=== PATIENT | female | born 1980 | race Caucasian/White ===

== ENCOUNTER 2017-10-03 13:38 | Emergency (ER) | payer OTHER ==
[~2017-10-03] VITALS: Ht 167.6 cm; Wt 55.3 kg
[~2017-10-03 13:38] MED LIST: ACETAMINOPHEN-1 EAC1 PO; ALBUTEROL INHAL17 GM IH; AUGMENTIN 875875 MG PO; BUTALB-APAP-CA1 EACH PO; CIPROFLOXIN HC2.5 M1 OPHTHALMIC; CLEOCIN HCL150 MG PO; ESTRADIOL 1 MG T1 M1 PO; HYDROCODONE-AP1 EAC6 PO; IBUPROFEN 800800 M1 PO; KEFLEX500 M1 PO; KEFLEX500 MG PO; NAPROSYN500 MG PO; NOHOMEMEDICATIONS; NORCO 5-325 TA1 EACH PO; ROBAXIN500 MG PO; TESSALON PERLE100 MG PO; TESSALON200 MG PO; TIZANIDINE HCL 22 M1 PO; TRAMADOL 50 MG50 MG PO; ULTRAM 50MG TAB50 MG PO; XANAX 0.5 MG0.5 M1 PO
[2017-10-03] MEDS ORDERED: OSELB75 PO (14:15)
[2017-10-03] MEDS ORDERED: IBUPROFEN 600600 M1 PO (14:15)
[2017-10-03] MEDS ORDERED: PROMETHAZINE V473 ML PO (14:15)
[2017-10-03] MEDS ORDERED: TESSALON PERLE100 MG PO (14:15)
[2017-10-03] MEDS ORDERED: KEFLEX500 M1 PO (14:16)
[2017-10-03 14:18] LABS: INFLUENZA A ANTIGEN None Detected (None Detect); INFLUENZA B ANTIGEN None Detected (None Detect)
[2017-10-03 14:25] VITALS: BP 130/79
== END 2017-10-03 14:30 | disposition home or self-care (01) ==
LOC: M.ERS 13:38
PROVIDERS: Physician Assistant
DX: J11.1 Influenza due to unidentified influenza virus with other respiratory manifestations (principal); H66.93 Otitis media, unspecified, bilateral; E80.4 Gilbert syndrome; F17.210 Nicotine dependence, cigarettes, uncomplicated; Z90.89 Acquired absence of other organs; Z90.49 Acquired absence of other specified parts of digestive tract; Z90.710 Acquired absence of both cervix and uterus; Z85.828 Personal history of other malignant neoplasm of skin; Z88.8 Allergy status to other drugs, medicaments and biological substances; Z88.5 Allergy status to narcotic agent; Z88.2 Allergy status to sulfonamides

== ENCOUNTER 2017-10-15 21:09 | Emergency (ER) | payer OTHER ==
[~2017-10-15] VITALS: Ht 167.6 cm; Wt 54.4 kg
[~2017-10-15 21:09] MED LIST changes: +IBUPROFEN 600600 M1 PO; +OSELB75 PO; +PROMETHAZINE V473 ML PO
[2017-10-15] MEDS ORDERED: NAPROSYN500 MG PO (22:00)
[2017-10-15] MEDS ORDERED: HYDROCODONE-AP1 EAC6 PO (22:00)
[2017-10-15 22:24] VITALS: BP 114/51
== END 2017-10-15 22:34 | disposition home or self-care (01) ==
LOC: M.ERS 21:09
DX: S93.601A Unspecified sprain of right foot, initial encounter (principal); F17.210 Nicotine dependence, cigarettes, uncomplicated; Z85.828 Personal history of other malignant neoplasm of skin; Z90.710 Acquired absence of both cervix and uterus; Z88.8 Allergy status to other drugs, medicaments and biological substances; W19.XXXA Unspecified fall, initial encounter; Y93.89 Activity, other specified; Y92.89 Other specified places as the place of occurrence of the external cause; Y99.8 Other external cause status

== ENCOUNTER 2018-06-24 03:10 | Emergency (ER) | payer OTHER ==
[~2018-06-24] VITALS: Ht 167.6 cm; Wt 59.0 kg
[2018-06-24] MEDS ORDERED: LIORESAL 10 MG10 MG PO (04:12)
[2018-06-24] MEDS ORDERED: FLEXERIL PO (04:12)
[2018-06-24] MEDS ORDERED: NORCO 7.5-3251 EACH PO (04:15)
[2018-06-24 04:26] VITALS: BP 101/67
== END 2018-06-24 04:26 | disposition home or self-care (01) ==
LOC: M.ERS 03:10
DX: M54.14 Radiculopathy, thoracic region (principal); Z85.828 Personal history of other malignant neoplasm of skin; Z90.49 Acquired absence of other specified parts of digestive tract; Z90.710 Acquired absence of both cervix and uterus; F17.210 Nicotine dependence, cigarettes, uncomplicated; Z88.2 Allergy status to sulfonamides; Z88.8 Allergy status to other drugs, medicaments and biological substances

== ENCOUNTER → 2019-04-20 | Emergency (ER) | payer BC ==
[~2019-04-20] VITALS: Ht 167.6 cm; Wt 59.0 kg
[~2019-04-20] MED LIST changes: +FLEXERIL PO; +HYDROCODONE-CHLO5 ML PO; +LIORESAL 10 MG10 MG PO; +NORCO 7.5-3251 EACH PO
[2019-04-20 03:54] VITALS: BP 105/54
== END ==
LOC: M.ERS 03:50
DX: J06.9 Acute upper respiratory infection, unspecified (principal); R22.0 Localized swelling, mass and lump, head; F17.210 Nicotine dependence, cigarettes, uncomplicated; Z90.49 Acquired absence of other specified parts of digestive tract; Z90.710 Acquired absence of both cervix and uterus; Z85.828 Personal history of other malignant neoplasm of skin; Z88.6 Allergy status to analgesic agent; Z88.2 Allergy status to sulfonamides

== ENCOUNTER 2019-06-20 03:48 | Emergency (ER) | payer BC ==
[~2019-06-20] VITALS: Ht 167.6 cm; Wt 58.1 kg
[2019-06-20] MEDS ORDERED: HYDROCODON-ACE1 EAC8 PO (04:50)
[2019-06-20 04:54] VITALS: BP 104/56
== END 2019-06-20 05:00 | disposition home or self-care (01) ==
LOC: M.ERS 03:48
DX: S93.492A Sprain of other ligament of left ankle, initial encounter (principal); F17.210 Nicotine dependence, cigarettes, uncomplicated; Z98.890 Other specified postprocedural states; Z85.828 Personal history of other malignant neoplasm of skin; Z90.710 Acquired absence of both cervix and uterus; Z90.49 Acquired absence of other specified parts of digestive tract; Z88.6 Allergy status to analgesic agent; Z88.2 Allergy status to sulfonamides; Z88.8 Allergy status to other drugs, medicaments and biological substances; W10.8XXA Fall (on) (from) other stairs and steps, initial encounter; Y93.89 Activity, other specified; Y92.89 Other specified places as the place of occurrence of the external cause; Y99.8 Other external cause status

== ENCOUNTER 2019-06-28 05:34 | Emergency (ER) | payer BC ==
[~2019-06-28] VITALS: Ht 167.6 cm; Wt 58.1 kg
[~2019-06-28 05:34] MED LIST changes: +HYDROCODON-ACE1 EAC8 PO
[2019-06-28] MEDS ORDERED: NAPROSYN500 MG PO (06:09)
[2019-06-28 06:32] VITALS: BP 104/58
== END 2019-06-28 06:32 | disposition home or self-care (01) ==
LOC: M.ERS 05:34
DX: S93.492A Sprain of other ligament of left ankle, initial encounter (principal); F17.210 Nicotine dependence, cigarettes, uncomplicated; Z98.890 Other specified postprocedural states; Z85.828 Personal history of other malignant neoplasm of skin; Z90.49 Acquired absence of other specified parts of digestive tract; Z90.710 Acquired absence of both cervix and uterus; Z88.6 Allergy status to analgesic agent; Z88.2 Allergy status to sulfonamides; Z88.8 Allergy status to other drugs, medicaments and biological substances; X58.XXXA Exposure to other specified factors, initial encounter; Y93.89 Activity, other specified; Y92.89 Other specified places as the place of occurrence of the external cause; Y99.8 Other external cause status

== ENCOUNTER 2020-12-17 16:29 | Emergency (ER) | payer BC ==
[~2020-12-17] VITALS: Ht 167.6 cm; Wt 61.2 kg
[2020-12-17] MEDS ORDERED: PROAIR HFA8.5 GM INH (16:55)
[2020-12-17] MEDS ORDERED: RAYOS5 MG PO (16:55)
[2020-12-17] MEDS ORDERED: AMOXICILLIN875 MG PO (16:55)
[2020-12-17 17:40] VITALS: BP 122/68
== END 2020-12-17 17:41 | disposition home or self-care (01) ==
LOC: M.ERS 16:29
DX: T17.920A Food in respiratory tract, part unspecified causing asphyxiation, initial encounter (principal); F17.210 Nicotine dependence, cigarettes, uncomplicated; Z90.89 Acquired absence of other organs; Z90.49 Acquired absence of other specified parts of digestive tract; Z90.711 Acquired absence of uterus with remaining cervical stump; Z85.828 Personal history of other malignant neoplasm of skin; Z88.8 Allergy status to other drugs, medicaments and biological substances; Z88.2 Allergy status to sulfonamides; X58.XXXA Exposure to other specified factors, initial encounter; Y93.89 Activity, other specified; Y92.89 Other specified places as the place of occurrence of the external cause; Y99.8 Other external cause status

== ENCOUNTER 2021-03-23 15:19 | Emergency (ER) | payer BC ==
[~2021-03-23] VITALS: Ht 167.6 cm; Wt 59.0 kg
[~2021-03-23 15:19] MED LIST changes: +AMOXICILLIN875 MG PO; +PROAIR HFA8.5 GM INH; +RAYOS5 MG PO
[2021-03-23 16:55] VITALS: BP 00/00
== END 2021-03-23 16:56 | disposition left against medical advice (07) ==
LOC: M.ERS 15:19
DX: Z53.21 Procedure and treatment not carried out due to patient leaving prior to being seen by health care provider (principal)